=== PATIENT | female | born 1970 | race Caucasian/White ===

== ENCOUNTER → 2019-10-13 | Outpatient (CLI) | payer BC ==
[~2019-10-13] MED LIST: CIPROFLOXACIN500 M1 PO; DILAUDID 2 MG TA2 MG PO; FLAGYL500 MG PO; GABAPENTIN; HYDROCODONE-AP1 EAC6 PO; HYDROXYZINE HCL25 M1 PO; HYDROXYZINE HCL25 M2; IBUPROFEN 800800 MG PO; KEFLEX250 M1 PO; KLONOPIN1 MG PO; MIRALAX255 GM PO; NEURONTIN 300300 M1 PO; NOHOMEMEDICATIONS; NORCO 5-325 TA1 EAC1 PO; NORCO 5-325 TA1 EACH PO; ONDANSETRON HCL4 M2 PO; OXYCONTIN60 MG PO; PERCOCET 10-321 EACH; PERCOCET 10-321 EACH PO; PERCOCET 5-3251 EACH PO; POTASSIUM20 PO; PROZAC PO; ULTRAM 50MG TAB50 MG PO; VICODIN 5-5001 EACH; VICOPROFEN 2001 EACH PO; VISTARIL 25 MG25 M1 PO; ZOFRAN ODT4 MG PO; ZOFRAN4 MG PO
== END ==
LOC: M.ULTRA 12:00
PROVIDERS: ATTEND Internal Medicine
DX: I83.892 Varicose veins of left lower extremity with other complications (principal); M79.89 Other specified soft tissue disorders

== ENCOUNTER → 2019-10-23 | Outpatient (CLI) | payer BC | LOC: M.ULTRA 10-19 13:00 | PROVIDERS: ATTEND Internal Medicine | DX: M79.89 Other specified soft tissue disorders (principal) ==